=== PATIENT | male | born 1970 | race Two or more races ===

== ENCOUNTER 2021-02-17 20:58 | Emergency (ER) | payer OTHER ==
[~2021-02-17] VITALS: Ht 182.9 cm; Wt 88.5 kg
== END 2021-02-17 23:43 | disposition home or self-care (01) ==
LOC: ER 20:58
DX: B34.9 Viral infection, unspecified (principal); R50.9 Fever, unspecified; R05 Cough; Z20.822 Contact with and (suspected) exposure to COVID-19